=== PATIENT | female | born 1950 | race Caucasian/White ===

== ENCOUNTER 2020-10-03 08:14 | Day surgery (SDC) | payer MEDICARE ==
[~2020-10-03] VITALS: Ht 154.9 cm; Wt 90.3 kg
[~2020-10-03 08:14] MED LIST: ACIPHEX20 MG OR; ACTIGALL300 MG PO; ACYCLOVIR400 MG OR; ALDACTONE50 MG OR; ARANESP IJ; ATORVASTATIN CA40 MG PO; BACTRIM DS1 TAB OR; CALCARB/D600 MG OR; CALCIUM600 M1 OR; CALCIUM600 MG PO; CENTRUM OR; CLARINEX5 MG OR; ENULOSE OR; FLAX SEED1000 MG PO; HYDROXYZ HCL25 MG OR; LASIX20 MG OR; LASIX40 MG OR; LEVEMIR SC; LISINOPRIL2.5 MG PO; LOPRESSOR25 M1 PO; LORTAB5 PO; MAGNESIUM400 M1 PO; METO25TAB OR; MULTI VIT PO; MULTI VITAMN OR; MYCOSTATIN100000 MG EX; NOVALOG; NOVOLIN 70/30 SC; OMEPRAZOLE20 M2 PO; OMEPRAZOLE20 MG OR; PEGASYS180 MCG/M SC; PERCOCET 5/325M1 TAB OR; PREDNISONE5 MG OR; PRILOSEC20 MG OR; PROGRAF5 MG OR; RIBAVIRIN400 MG OR; TACROLIMUS0.5 MG PO; URSODIOL300 MG OR; VITAMIN C100 MG OR; VITAMIN D50000 UNT OR; ZINC50 MG OR; [UNRECOGNIZED DRUG - CODE] OR
[2020-10-03 11:09] VITALS: BP 117/56
== END 2020-10-03 10:40 | disposition home or self-care (01) ==
LOC: ENDO 08:14 → ORM 08:45 → ENDO 10:15 → ORM 10:15 → ENDO 10:40
PROVIDERS: ATTEND Surgery
PROC: 0DBN8ZX Excision of Sigmoid Colon, Via Natural or Artificial Opening Endoscopic, Diagnostic (ICD-10-PCS; principal; 2020-10-03)
PROC: 0DBL8ZX Excision of Transverse Colon, Via Natural or Artificial Opening Endoscopic, Diagnostic (ICD-10-PCS; 2020-10-03)
DX: Z12.11 Encounter for screening for malignant neoplasm of colon (principal); K63.5 Polyp of colon; K64.8 Other hemorrhoids; E11.9 Type 2 diabetes mellitus without complications; I10 Essential (primary) hypertension; Z86.010 Personal history of colon polyps; Z94.4 Liver transplant status; Z79.4 Long term (current) use of insulin; Z20.828 Contact with and (suspected) exposure to other viral communicable diseases

== ENCOUNTER 2023-05-06 21:24 | Emergency (ER) | payer MEDICARE ==
[~2023-05-06] VITALS: Ht 154.9 cm; Wt 90.0 kg
[2023-05-06] VITALS (7 sets, daily range): BP systolic 103–150; BP diastolic 55–64
[2023-05-06] MEDS ORDERED: PREDNISONE20 MG PO (22:56)
== END 2023-05-06 23:23 | disposition home or self-care (01) ==
LOC: ED 21:24
DX: M10.071 Idiopathic gout, right ankle and foot (principal); I10 Essential (primary) hypertension; E11.9 Type 2 diabetes mellitus without complications; Z94.4 Liver transplant status; Z79.4 Long term (current) use of insulin; Z88.5 Allergy status to narcotic agent